=== PATIENT | female | born 2000 | race Caucasian/White ===

== ENCOUNTER 2025-03-08 13:07 | Emergency (ER) | payer SELFPAY ==
[~2025-03-08] VITALS: Ht 167.6 cm; Wt 100.0 kg
[2025-03-08 13:09] VITALS: O2SAT 100
[2025-03-08] MEDS: ACETAMINOPHEN 325MG TABLET PO ONE (15:09)
[2025-03-08] MEDS: TETANUS, DIPHTHERIA, PERTUSSIS VAC/PF 0.5ML (>10YR OLD) IM ONE (15:10)
[2025-03-08] MEDS ORDERED: NAPR220C61 MT (16:33)
[2025-03-08] MEDS: KETOROLAC 30MG/ML VIAL IM ONE (16:49)
[2025-03-08] MEDS: BACITRACIN ZINC OINT UDPKT TOP ONE (16:49)
[2025-03-08 16:56] VITALS: BP 139/83; PULSE 98; RESP 18; TEMP 37.2; O2SAT 99
== END 2025-03-08 16:58 | disposition home or self-care (01) ==
LOC: ER 13:07
DX: S05.11XA Contusion of eyeball and orbital tissues, right eye, initial encounter (principal); S09.8XXA Other specified injuries of head, initial encounter; G89.11 Acute pain due to trauma; R51.9 Headache, unspecified; V43.62XA Car passenger injured in collision with other type car in traffic accident, initial encounter; Y93.89 Activity, other specified; Y92.410 Unspecified street and highway as the place of occurrence of the external cause; Y99.8 Other external cause status
CPT/HCPCS: 99285; 70450; 70486; 90715; 90471; 96372; J1885